=== PATIENT | female | born 1940 | race Caucasian/White ===

== ENCOUNTER 2017-04-07 18:39 | Inpatient (IN) | payer MEDICARE, BC ==
[2017-04-07] MEDS ORDERED: TYLENOL EXTRA500 M1 PO (21:49)
[2017-04-07] MEDS ORDERED: ASPIRIN EC81 MG PO (21:50)
[2017-04-07] MEDS ORDERED: CARBIDOPA-LEVO E1 EA PO (21:51)
[2017-04-07] MEDS ORDERED: REFRESH PLUS1 EACH OP (21:52)
[2017-04-07] MEDS ORDERED: ATIVAN0.5 M1 PO (21:55)
[2017-04-07] MEDS ORDERED: REMERON15 M1 PO (22:44)
[2017-04-07] MEDS ORDERED: MIRAPEX1 M1 PO (22:46)
[2017-04-07] MEDS ORDERED: TRIHEXYPHENIDYL2 M1 PO (22:47)
[2017-04-07] MEDS ORDERED: VITAMIN D31000 UNI3 PO (22:48)
[2017-04-08 06:36] LABS: BASO % 0.2 % (0-2); EOS % 2.6 % (0-7); EOSINOPHIL ABSOLUTE COUNT 0.1 tho/cmm (0.0-0.7); HCT-HEMATOCRIT 35.1 % (34.0-49.0); HGB-HEMOGLOBIN 11.3 gm/dl (12.0-15.5); IMMATURE GRANULOCYTES ABSOLUTE 0.01 tho/cmm (0-0.03); IMMATURE GRANULOCYTES PERCENT 0.2 % (0-0.3); LYMPH % 19.2 % (20-45); MCH (MEAN CORPUSCULAR HGB) 31.1 pg (28.0-32.0); MCHC MEAN CORPUSCULAR HGB CONC 32.2 % (32.0-36.0); MCV (MEAN CELL VOLUME) 96.7 fl (82.0-96.0); MEAN PLATELET VOLUME 9.9 cmc (9.4-12.4); MONO % 11.3 % (0-12); MONOCYTE ABSOLUTE COUNT 0.6 tho/cmm (0.0-1.2); NEUTROPHIL ABSOLUTE COUNT 3.4 tho/cmm (1.6-8.0); NEUTROPHIL-AUTOMATED 3.4 tho/cmm (1.6-8.0); NEUTROPHILS % 66.5 % (40-80); PLATELET COUNT 236 tho/cmm (150-450); RED BLOOD COUNT 3.63 mil/cmm (4.00-5.20); RED CELL DISTRIBUTION WIDTH 14.7 % (12.4-16.4); WHITE BLOOD COUNT 5.1 tho/cmm (4.0-10.0)
[2017-04-08 06:47] LABS: ANION GAP 13 mmol/L (0-20); BLOOD UREA NITROGEN 12 mg/dl (6-24); CALCIUM 8.5 mg/dl (8.5-10.5); CARBON DIOXIDE-VENOUS 26 mmol/L (22-32); CHLORIDE 107 mmol/l (96-110); CREATININE 0.56 mg/dl (0.50-1.10); GLUCOSE 81 mg/dL (70-110); POTASSIUM 3.7 mmol/L (3.7-5.1); SODIUM 142 mmol/L (135-145); eGFR VALUE FOR BLACK >90 mL/Min
[2017-04-08 08:04] LABS: PROTHROMBIN TIME 11.8 SECONDS (9.0-13.6)
[2017-04-09 05:45] LABS: BASO % 0.2 % (0-2); EOS % 1.8 % (0-7); EOSINOPHIL ABSOLUTE COUNT 0.1 tho/cmm (0.0-0.7); HCT-HEMATOCRIT 33.2 % (34.0-49.0); HGB-HEMOGLOBIN 10.9 gm/dl (12.0-15.5); LYMPH % 7.7 % (20-45); LYMPH ABSOLUTE COUNT 0.5 tho/cmm (0.8-4.5); MCH (MEAN CORPUSCULAR HGB) 31.4 pg (28.0-32.0); MCHC MEAN CORPUSCULAR HGB CONC 32.8 % (32.0-36.0); MCV (MEAN CELL VOLUME) 95.7 fl (82.0-96.0); MEAN PLATELET VOLUME 9.6 cmc (9.4-12.4); MONO % 5.7 % (0-12); MONOCYTE ABSOLUTE COUNT 0.4 tho/cmm (0.0-1.2); NEUTROPHIL ABSOLUTE COUNT 5.2 tho/cmm (1.6-8.0); NEUTROPHIL-AUTOMATED 5.2 tho/cmm (1.6-8.0); NEUTROPHILS % 84.6 % (40-80); PLATELET COUNT 232 tho/cmm (150-450); RED BLOOD COUNT 3.47 mil/cmm (4.00-5.20); RED CELL DISTRIBUTION WIDTH 14.5 % (12.4-16.4); WHITE BLOOD COUNT 6.1 tho/cmm (4.0-10.0)
[2017-04-09 06:13] LABS: ANION GAP 10 mmol/L (0-20); BLOOD UREA NITROGEN 10 mg/dl (6-24); CALCIUM 8.4 mg/dl (8.5-10.5); CARBON DIOXIDE-VENOUS 29 mmol/L (22-32); CHLORIDE 105 mmol/l (96-110); CREATININE 0.62 mg/dl (0.50-1.10); GLUCOSE 115 mg/dL (70-110); POTASSIUM 3.9 mmol/L (3.7-5.1); SODIUM 140 mmol/L (135-145); eGFR VALUE FOR BLACK >90 mL/Min
[2017-04-10 05:24] LABS: BASO % 0.2 % (0-2); EOS % 0.5 % (0-7); HCT-HEMATOCRIT 32.3 % (34.0-49.0); HGB-HEMOGLOBIN 10.5 gm/dl (12.0-15.5); IMMATURE GRANULOCYTES ABSOLUTE 0.01 tho/cmm (0-0.03); IMMATURE GRANULOCYTES PERCENT 0.2 % (0-0.3); LYMPH % 7.4 % (20-45); LYMPH ABSOLUTE COUNT 0.5 tho/cmm (0.8-4.5); MCHC MEAN CORPUSCULAR HGB CONC 32.5 % (32.0-36.0); MCV (MEAN CELL VOLUME) 95.3 fl (82.0-96.0); MEAN PLATELET VOLUME 9.8 cmc (9.4-12.4); MONO % 9.3 % (0-12); MONOCYTE ABSOLUTE COUNT 0.6 tho/cmm (0.0-1.2); NEUTROPHIL ABSOLUTE COUNT 5.2 tho/cmm (1.6-8.0); NEUTROPHIL-AUTOMATED 5.2 tho/cmm (1.6-8.0); NEUTROPHILS % 82.4 % (40-80); PLATELET COUNT 254 tho/cmm (150-450); RED BLOOD COUNT 3.39 mil/cmm (4.00-5.20); RED CELL DISTRIBUTION WIDTH 14.4 % (12.4-16.4); WHITE BLOOD COUNT 6.4 tho/cmm (4.0-10.0)
[2017-04-10 05:31] LABS: ANION GAP 13 mmol/L (0-20); BLOOD UREA NITROGEN 14 mg/dl (6-24); CALCIUM 8.3 mg/dl (8.5-10.5); CARBON DIOXIDE-VENOUS 26 mmol/L (22-32); CHLORIDE 102 mmol/l (96-110); CREATININE 0.46 mg/dl (0.50-1.10); GLUCOSE 94 mg/dL (70-110); POTASSIUM 3.7 mmol/L (3.7-5.1); SODIUM 137 mmol/L (135-145); eGFR VALUE FOR BLACK >90 mL/Min
[2017-04-11] MEDS ORDERED: ULTRAM50 M1 PO (10:42)
[2017-04-11] MEDS ORDERED: TYLENOL325 M2 PO ×2 (10:43→10:44)
[2017-04-11] MEDS ORDERED: BISCOLAX10 MG PR (10:47)
[2017-04-11] MEDS ORDERED: SENNA PLUS TAB1 EAC1 PO ×2 (10:48→10:49)
[2017-04-11] MEDS ORDERED: ELIQUIS2.5 M1 PO (10:50)
== END 2017-04-11 13:35 | DRG 469 ==
LOC: 5EB 18:39 → ORE 04-08 07:34 → PACU 04-08 09:05 → 5EB 04-08 09:55
PROVIDERS: Internal Medicine; Orthopaedic Surgery; ADMIT Hospitalist
PROC: 0SRR0JZ Replacement of Right Hip Joint, Femoral Surface with Synthetic Substitute, Open Approach (ICD-10-PCS; principal; 2017-04-08)
DX: S72.091A Other fracture of head and neck of right femur, initial encounter for closed fracture (principal); G92 Toxic encephalopathy; D62 Acute posthemorrhagic anemia; G20 Parkinson's disease; Z91.013 Allergy to seafood; K21.9 Gastro-esophageal reflux disease without esophagitis; Z85.3 Personal history of malignant neoplasm of breast; W19.XXXA Unspecified fall, initial encounter; K59.00 Constipation, unspecified; Z91.81 History of falling
CPT/HCPCS: J0171; J0690; J1644; J1885; J2270; J2795; J7030